=== PATIENT | male | born 1995 | race Caucasian/White ===

== ENCOUNTER 2022-04-12 13:03 | Emergency (ER) | payer OTHER, BC ==
[2022-04-12 14:53] VITALS: BP 122/67; PULSE 76
== END 2022-04-12 14:50 | disposition home or self-care (01) ==
LOC: MW.ED 13:03
DX: S00.01XA Abrasion of scalp, initial encounter (principal); W22.09XA Striking against other stationary object, initial encounter
CPT/HCPCS: 70450; 70450-26; 99283